=== PATIENT | male | born 1990 | race Caucasian/White ===

== ENCOUNTER 2020-11-14 09:53 | Outpatient (CLI) | payer OTHER ==
[2020-11-14 14:21] LABS: BASOPHILS % (AUTO) 0.5 %; EOSINOPHILS # (AUTO) 0.1 10^3/uL (0.0-0.7); EOSINOPHILS % (AUTO) 1.2 %; HGB - HEMOGLOBIN 15.1 g/dL (14.0-18.0); LYMPHOCYTES # (AUTO) 1.9 10^3/uL (1.5-3.5); LYMPHOCYTES % (AUTO) 24.7 %; MEAN CORPUSCULAR HEMOGLOBIN 29.2 pg (27.0-31.0); MEAN CORPUSCULAR HGB CONC 33.6 g/dL (32.0-36.0); MEAN CORPUSCULAR VOLUME 86.9 fL (80.0-94.0); MEAN PLATELET VOLUME 9.7 fL (7.4-11.4); MONOCYTES # (AUTO) 0.4 10^3/uL (0.0-1.0); MONOCYTES % (AUTO) 5.5 %; NEUTROPHILS # (AUTO) 5.3 10^3/uL (1.5-6.6); NEUTROPHILS % (AUTO) 67.2 %; PLT - PLATELET COUNT 214 10^3/uL (130-450); RED BLOOD COUNT 5.18 10^6/uL (4.70-6.10); RED CELL DISTRIBUTION WIDTH 13.3 % (12.0-15.0); WHITE BLOOD COUNT 7.8 x10^3/uL (4.8-10.8)
[2020-11-14 14:48] LABS: ALBUMIN 4.4 g/dL (3.2-5.5); ALKALINE PHOSPHATASE 64 IU/L (42-121); ALT ALANINE AMINOTRANSFERASE 28 IU/L (10-60); AST ASPARTATE AMINOTRANSFERASE 26 IU/L (10-42); BILIRUBIN,TOTAL 0.6 mg/dL (0.2-1.0); BUN - BLOOD UREA NITROGEN 15 mg/dL (6-20); CALCIUM 9.5 mg/dL (8.5-10.3); CARBON DIOXIDE - CO2 28 mmol/L (21-32); CHLORIDE 107 mmol/L (101-111); CHOL/HDL RATIO 7.3 (<5.0); CHOLESTEROL 174 mg/dL; CREATININE 0.9 mg/dL (0.6-1.2); GFR - MDRD 98 (>89); GLUCOSE 97 mg/dL (70-100); HDL CHOLESTEROL 24 mg/dL; LDL CHOLESTEROL,CALCULATED 129 mg/dL; LDL CHOLESTEROL,DIRECT 124 mg/dL; LDL/HDL RATIO 5.4 (<3.6); POTASSIUM 3.6 mmol/L (3.5-5.0); SODIUM 143 mmol/L (135-145); TRIGLYCERIDES 106 mg/dL; VLDL CHOLESTEROL 21 mg/dL
[2020-11-14 15:15] LABS: BILIRUBIN,DIRECT < 0.1 mg/dL (0.1-0.5)
[2020-11-15 11:12] LABS: HEPATITIS B SURFACE ANTIGEN NON-REACTIVE (NON-REACTIVE); HEPATITIS C ANTIBODY NON-REACTIVE (NON-REACTIVE)
[2020-11-15 11:27] LABS: HEPATITIS B CORE AB TOTAL NON-REACTIVE (NON-REACTIVE)
[2020-11-16 14:01] LABS: NIL 0.01 IU/mL
== END 2020-11-14 09:54 | disposition home or self-care (01) ==
LOC: LAB.S 09:53
PROVIDERS: ATTEND Physician Assistant
DX: L40.0 Psoriasis vulgaris (principal); L40.59 Other psoriatic arthropathy; L28.1 Prurigo nodularis
CPT/HCPCS: 36415; 80048; 80061; 80076; 83721; 85025; 86317; 86480; 86704; 86803; 87340

== ENCOUNTER 2021-07-17 13:15 | Outpatient (CLI) | payer MEDICAID ==
[2021-07-17 20:15] LABS: BASOPHILS # (AUTO) 0.1 10^3/uL (0.0-0.1); BASOPHILS % (AUTO) 0.8 %; EOSINOPHILS # (AUTO) 0.1 10^3/uL (0.0-0.7); EOSINOPHILS % (AUTO) 0.8 %; HCT - HEMATOCRIT 46.7 % (42.0-52.0); HGB - HEMOGLOBIN 15.5 g/dL (14.0-18.0); LYMPHOCYTES # (AUTO) 1.7 10^3/uL (1.5-3.5); LYMPHOCYTES % (AUTO) 20.3 %; MEAN CORPUSCULAR HGB CONC 33.2 g/dL (32.0-36.0); MEAN CORPUSCULAR VOLUME 84.4 fL (80.0-94.0); MONOCYTES # (AUTO) 0.5 10^3/uL (0.0-1.0); MONOCYTES % (AUTO) 6.1 %; NEUTROPHILS # (AUTO) 6.1 10^3/uL (1.5-6.6); NEUTROPHILS % (AUTO) 71.2 %; PLT - PLATELET COUNT 278 10^3/uL (130-450); RED BLOOD COUNT 5.53 10^6/uL (4.70-6.10); RED CELL DISTRIBUTION WIDTH 13.4 % (12.0-15.0); WHITE BLOOD COUNT 8.6 x10^3/uL (4.8-10.8)
[2021-07-17 20:21] LABS: ALBUMIN 4.6 g/dL (3.2-5.5); ALBUMIN/GLOBULIN RATIO 1.1 (1.0-2.2); BILIRUBIN,TOTAL 0.7 mg/dL (0.2-1.0); CALCIUM 9.5 mg/dL (8.5-10.3); CREATININE 0.9 mg/dL (0.6-1.2); POTASSIUM 3.2 mmol/L (3.5-5.0); TOTAL PROTEIN 8.7 g/dL (6.7-8.2)
[2021-07-19 09:36] LABS: HEPATITIS B SURFACE ANTIGEN NON-REACTIVE (NON-REACTIVE)
[2021-07-19 14:46] LABS: HIV AG/AB 4TH GEN NON-REACTIVE (NON-REACTIVE)
[2021-07-20 15:05] LABS: NIL 0.02 IU/mL
== END 2021-07-17 13:16 | disposition home or self-care (01) ==
LOC: LAB.S 13:15
DX: L40.8 Other psoriasis (principal)
CPT/HCPCS: 36415; 80053; 85025; 86480; 87340; 87389

== ENCOUNTER 2021-12-03 14:19 | Outpatient (CLI) | payer MEDICAID ==
[2021-12-03 19:56] LABS: BASOPHILS % (AUTO) 0.4 %; EOSINOPHILS # (AUTO) 0.1 10^3/uL (0.0-0.7); EOSINOPHILS % (AUTO) 0.9 %; HCT - HEMATOCRIT 44.7 % (42.0-52.0); HGB - HEMOGLOBIN 14.9 g/dL (14.0-18.0); LYMPHOCYTES # (AUTO) 1.9 10^3/uL (1.5-3.5); LYMPHOCYTES % (AUTO) 20.7 %; MEAN CORPUSCULAR HEMOGLOBIN 28.7 pg (27.0-31.0); MEAN CORPUSCULAR HGB CONC 33.3 g/dL (32.0-36.0); MEAN CORPUSCULAR VOLUME 86.1 fL (80.0-94.0); MEAN PLATELET VOLUME 9.7 fL (7.4-11.4); MONOCYTES # (AUTO) 0.6 10^3/uL (0.0-1.0); MONOCYTES % (AUTO) 6.1 %; NEUTROPHILS # (AUTO) 6.5 10^3/uL (1.5-6.6); NEUTROPHILS % (AUTO) 71.1 %; PLT - PLATELET COUNT 255 10^3/uL (130-450); RED BLOOD COUNT 5.19 10^6/uL (4.70-6.10); RED CELL DISTRIBUTION WIDTH 13.7 % (12.0-15.0); WHITE BLOOD COUNT 9.2 x10^3/uL (4.8-10.8)
[2021-12-03 20:13] LABS: ALBUMIN 4.6 g/dL (3.2-5.5); ALBUMIN/GLOBULIN RATIO 1.2 (1.0-2.2); ALKALINE PHOSPHATASE 58 IU/L (42-121); ALT ALANINE AMINOTRANSFERASE 28 IU/L (10-60); AST ASPARTATE AMINOTRANSFERASE 31 IU/L (10-42); BILIRUBIN,TOTAL 0.8 mg/dL (0.2-1.0); BUN - BLOOD UREA NITROGEN 14 mg/dL (6-20); CALCIUM 9.6 mg/dL (8.5-10.3); CARBON DIOXIDE - CO2 27 mmol/L (21-32); CHLORIDE 105 mmol/L (101-111); CHOL/HDL RATIO 6.7 (<5.0); CHOLESTEROL 161 mg/dL; CREATININE 1.1 mg/dL (0.6-1.2); GFR - MDRD 77 (>89); GLUCOSE 97 mg/dL (70-100); HDL CHOLESTEROL 24 mg/dL; LDL CHOLESTEROL,CALCULATED 118 mg/dL; LDL/HDL RATIO 4.9 (<3.6); POTASSIUM 3.9 mmol/L (3.5-5.0); SODIUM 142 mmol/L (135-145); TOTAL PROTEIN 8.3 g/dL (6.7-8.2); TRIGLYCERIDES 96 mg/dL; VLDL CHOLESTEROL 19 mg/dL
[2021-12-03 20:26] LABS: THYROID STIMULATING HORMONE 1.55 uIU/mL (0.34-5.60)
== END 2021-12-03 14:20 | disposition home or self-care (01) ==
LOC: LAB.S 14:19
PROVIDERS: ATTEND Registered Nurse
DX: I10 Essential (primary) hypertension (principal); Z13.220 Encounter for screening for lipoid disorders; N40.0 Benign prostatic hyperplasia without lower urinary tract symptoms; Z13.29 Encounter for screening for other suspected endocrine disorder; Z79.899 Other long term (current) drug therapy
CPT/HCPCS: 36415; 80053; 80061; 83721; 84153; 84443; 85025

== ENCOUNTER 2022-07-12 12:23 | Outpatient (CLI) | payer MEDICAID ==
[2022-07-12 14:22] LABS: HCT - HEMATOCRIT 44.8 % (42.0-52.0); HGB - HEMOGLOBIN 14.9 g/dL (14.0-18.0); MEAN CORPUSCULAR HGB CONC 33.3 g/dL (32.0-36.0); MEAN CORPUSCULAR VOLUME 87.2 fL (80.0-94.0); MEAN PLATELET VOLUME 10.2 fL (7.4-11.4); RED BLOOD COUNT 5.14 10^6/uL (4.70-6.10); RED CELL DISTRIBUTION WIDTH 13.6 % (12.0-15.0); WHITE BLOOD COUNT 9.3 x10^3/uL (4.8-10.8)
[2022-07-12 14:40] LABS: ALBUMIN 4.5 g/dL (3.2-5.5); ALBUMIN/GLOBULIN RATIO 1.2 (1.0-2.2); BILIRUBIN,TOTAL 0.7 mg/dL (0.2-1.0); CALCIUM 9.7 mg/dL (8.5-10.3); CREATININE 0.9 mg/dL (0.6-1.2); POTASSIUM 3.5 mmol/L (3.5-5.0); TOTAL PROTEIN 8.2 g/dL (6.7-8.2)
[2022-07-13 05:09] LABS: HBsAG SCREEN Negative (Negative)
[2022-07-17 10:08] LABS: HBV IU/ML HBV DNA not detected IU/mL (.)
== END 2022-07-12 12:24 | disposition home or self-care (01) ==
LOC: LAB.S 12:23
PROVIDERS: ATTEND Dermatology
DX: L40.9 Psoriasis, unspecified (principal); Z79.899 Other long term (current) drug therapy
CPT/HCPCS: 36415; 80053; 81599; 85027; 86480; 87340; 87517

== ENCOUNTER 2022-11-29 12:31 | Emergency (ER) | payer MEDICAID ==
[2022-11-29] MEDS ORDERED: METOPROLOL SUCCINATE 50 MG TABLET PO STA (15:36)
--- NOTE | 2022-11-29 15:38 | ED Physician Documentation ---
PD HPI CHEST PAIN - Stated complaint Stated Complaint: HIGH BLOOD PRESSURE - Chief complaint Chief Complaint: Cardiac - History obtained from History obtained from: Patient - Additional information Additional information: 32-year-old gentleman with history of hypertension was seen by my partner last week for new onset atrial flutter which she was cardioverted out of. Since then his blood pressure medicines have been increased, his losartan is now at 100 mg a day and his amlodipine at 5 mg a day. Today he noticed significantly elevated blood pressures and slightly high heart rates not associated with chest pain or trouble breathing. PD PAST MEDICAL HISTORY - Present Medications Home Medications: Ambulatory Orders Medication Instructions Recorded Confirmed Adalimumab [Humira(Cf) Pen] 40 mg SQ .TWICE A MONTH 11/23/22 11/23/22 LORazepam [Ativan] 1 mg PO TID PRN #12 tablet 11/23/22 Losartan [Cozaar] 50 mg PO DAILY 11/23/22 11/23/22 amLODIPine [Norvasc] 2.5 mg PO DAILY 11/23/22 11/23/22 Metoprolol Succinate [Toprol Xl] 50 mg PO DAILY #30 tablet 11/29/22 - Allergies Allergies/Adverse Reactions: Allergies Allergy/AdvReac Type Severity Reaction Status Date / Time No Known Drug Allergies Allergy Verified 11/29/22 13:12 PD ED PE NORMAL - Vitals Vital signs reviewed: Yes - General General: Alert and oriented X 3, No acute distress - Cardiac Cardiac: Other (Mild resting tachycardia, sinus tach on the monitor about 110) - Respiratory Respiratory: No respiratory distress, Clear bilaterally - Abdomen Abdomen: Normal bowel sounds, Soft, Non tender - Neuro Neuro: Alert and oriented X 3, Normal speech Results - Vitals Vitals: Vital Signs - 24 hr 11/29/22 13:07 Temperature 36.3 C L Heart Rate 108 H Respiratory 18 Rate Blood Pressure 171/100 H O2 Saturation 100 Oxygen O2 Source Room air PD Medical Decision Making - ED course ED course: 32-year-old gentleman with uncontrolled blood pressure, he appears well and has no chest pain. He is in sinus rhythm albeit mildly tachycardic. We will add beta-mandi pending follow-up. Departure - Departure Disposition: 01 Home, Self Care Clinical Impression: Hypertension Qualifiers: Hypertension type: primary hypertension Qualified Code(s): I10 - Essential (primary) hypertension Condition: Good Record reviewed to determine appropriate education?: Yes Instructions: DASH Plan Eat Heart Healthy Food Prescriptions: Metoprolol Succinate [Toprol Xl] 50 mg PO DAILY #30 tablet Comments: You should continue your current dosing of losartan and amlodipine. I am adding metoprolol which is a beta-mandi. In addition you should try to eat a low- salt heart healthy diet and exercise. Follow-up with your doctor next week for recheck and potential medication titration. Return for new or worsening symptoms.
[2022-11-29 15:43] VITALS: BP 164/108
== END 2022-11-29 15:49 | disposition home or self-care (01) ==
LOC: ED 12:31
DX: I10 Essential (primary) hypertension (principal); R00.0 Tachycardia, unspecified
CPT/HCPCS: 93005; 99283; A9270

== ENCOUNTER 2023-02-12 15:07 | Outpatient (CLI) | payer MEDICAID | END 2023-02-12 15:08 | disposition home or self-care (01) | LOC: MAC.MOP 15:07 | PROVIDERS: ATTEND Internal Medicine | DX: I48.0 Paroxysmal atrial fibrillation (principal) | CPT/HCPCS: 93242 ==

== ENCOUNTER 2023-03-26 09:17 | Outpatient (CLI) | payer MEDICAID | END 2023-03-26 09:18 | disposition home or self-care (01) | LOC: DI 09:17 | PROVIDERS: ATTEND Internal Medicine | DX: F41.9 Anxiety disorder, unspecified (principal); I10 Essential (primary) hypertension; I48.0 Paroxysmal atrial fibrillation | CPT/HCPCS: 93306 ==

== ENCOUNTER 2023-05-27 11:06 | Outpatient (CLI) | payer MEDICAID ==
--- NOTE | 2023-05-27 11:48 | Sleep Patient Instructions ---
Sleep Center Visit Summary - Patient Visit Information Reason for Visit: Initial consult for evaluation of sleep disordered breathing and other sleep issues. - Patient Instructions Instructions Attached: Sleep Study, Sleep Study Home Monitor Additional Instructions: You will be completing a sleep study, either an in-lab polysomnography (PSG) or home sleep study (HST). You will follow-up in the sleep care office after the sleep study is completed to hear the results and talk about therapy, if needed. You will be called by our office staff to schedule this appointment, but you may contact us with any questions. - Clinic Information Contact: [facility] [address] [place] [id number] [email or web address] T: [phone]
--- NOTE | 2023-05-27 11:51 | SLEEP CARE CONSULTATION ---
Information from patient questionnaire entered by Anéglica Girard. I have reviewed and concur with the information entered by Angélica Girard. This document represents the service I personally performed and the decisions made by me, Lillie Swift ARNP. History of Present Illness Service Date and Time: 05/27/2023 1106 Reason for Visit: New patient Chief Complaint: reports: Observed pauses in breathing, Frequent awakenings at night Date of Onset: ~ 4 years Usual bedtime: Between 12:30 - 1:30 AM Time it takes to fall asleep: 5 minutes of less Snores at night: Yes Observed to quit breathing while asleep: Yes Sleeps alone due to snoring: No Number of times waking at night: 3-5 Reasons for waking at night: reports: Bathroom, Other (Unknown reason). denies: Choking, Gasping for air Toss, Turn, or Twitch while sleeping: Yes Recalls having dreams: Yes Usually gets out of bed at: 8:00 AM - 9:30 AM Feels refreshed in the morning: Yes (Sometimes) Morning headache: Yes (Sometimes; 1 day every week or so; on Humira injection for Psoriasis) Sleepy or fatigued during the day: No Ever fallen asleep while driving: Yes (drowsy driving; no accidents) Takes day naps: Yes (Sometimes; only on weekends) Dreams during day naps: Yes Prior sleep studies: No Additional HPI information: I had the pleasure of seeing KANIKA RODRIGUEZ today regarding the possibility of him having a sleep disorder. His current complaints are observed pauses in breathing and frequent night awakenings. He was discussing sleep with his PCP and was recommended he have a sleep study. His is telling him he holds his breath for a long time at night and loud snoring. Occasionally, does have a dream that he is holding breath underwater. He denies waking up feeling like he is choking or gasping for air. He states that he does not always wake up feeling refreshed in the morning. 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 Patient is and lives in [place]. Have you smoked in the past 12 months: No Alcohol use: No Caffeine use: Yes Caffeine amount and frequency: Daily - one coffee drink per day Family History Family history of sleep disordered breathing: Yes Family Hx Sleep Apnea: Father: Snoring, Grandparent: Snoring Allergies and Home Medications Known drug allergies: No Drug allergies reviewed: Yes Home medication list reviewed: Yes Allergy and home medication list: Allergies No Known Drug Allergies Allergy (Verified 05/26/23 09:18) Medications: Humira 40 mg every two weeks Metroprolol daily Amlodipine besylate 45 mg daily Olmesartan daily Review of Systems Weight gain over past 5 years: 35-40 Cardiovascular: reports: high blood pressure Gastrointestinal: reports: heartburn Psychiatric: reports: anxiety Ear/Nose/Throat: reports: wisdom teeth removed (2 of 4). denies: tonsillectomy Musculoskeletal: reports: joint pain (/stiffness), joint swelling Physical Exam Vital signs obtained and entered by: Lillie Padgett NP Blood Pressure: 153/95 (pt anxious) Cuff size: wrist (right) Heart Rate: 95 O2 Saturation: 99 Height: 5 ft 11 in Weight: 245 lb 6.4 oz Body Mass Index: 34.2 BMI Classification: Obese Neck circumference: 17 (inches) Mouth and throat: narrow oropharynx Soft palate: long Hard palate: normal Uvula: normal, long Uvula visualization: 25% Mallampati Class III Tongue: enlarged in size with teeth harden on lateral edges Tonsils: 2+ Neck: normal w/o lymphadenopathy or thyromegaly Heart: regular rate and rhythm Lungs: clear bilaterally Impression and Plan 1. Suspected Obstructive Sleep Apnea-Hypopnea Syndrome, as suggested by a history of loud and irregular snoring, observed cessation of breath while asleep, gasping or choking in sleep, frequent awakening during the night and unrefreshed sleep. Narrow oropharynx and obesity are common predisposing factors for obstructive sleep apnea-hypopnea syndrome. I recommend proceeding to polysomnography to confirm the diagnosis and to assess severity. If the patient has significant sleep disordered breathing, a manual CPAP titration study will also be performed to find the optimal treatment pressure. I informed the patient of what the sleep studies involve and after some discussion, obtained agreement to proceed. The pathophysiology of obstructive sleep apnea-hypopnea syndrome was discussed with the patient and health risks of cardiovascular and cerebrovascular disease if not treated. Risks of drowsy driving discussed in detail and patient advised to avoid long distance driving and to veneer puller at the first sign of drowsiness. Patient agreed to plan. * Schedule polysomnography. * Avoid long distance driving or driving when feeling sleepy. * Avoid alcohol, sedative and muscle relaxant around bedtime. * Attempt to lose weight. * Review instructions provided by trained office staff on how to prepare for the sleep study. * Return for follow-up after sleep study completed. Counseling Topics: Weight loss health impact Visit Type: In Office Time Spent with Patient (minutes): 31 Provider Statement: I spent 100% of the Face to Face Visit with the patient with greater than 50% spent counseling the patient and coordination of care.
[2023-05-27 11:55] VITALS: BP 153/95; O2SAT 99
== END 2023-05-27 11:07 | disposition home or self-care (01) ==
LOC: SC 11:06
PROVIDERS: ATTEND Nurse Practitioner Family
DX: G47.8 Other sleep disorders (principal); R06.83 Snoring; R06.81 Apnea, not elsewhere classified; I10 Essential (primary) hypertension; E66.9 Obesity, unspecified; Z68.34 Body mass index [BMI] 34.0-34.9, adult
CPT/HCPCS: 99203; 99212

== ENCOUNTER → 2023-06-12 | Outpatient (CLI) | payer MEDICAID | LOC: SC 12:30 | PROVIDERS: ATTEND Nurse Practitioner Family | DX: Z53.9 Procedure and treatment not carried out, unspecified reason (principal) ==

== ENCOUNTER 2023-06-19 16:10 | Outpatient (CLI) | payer MEDICAID ==
--- NOTE | 2023-06-19 16:39 | Sleep Patient Instructions ---
Sleep Center Visit Summary - Patient Visit Information Reason for Visit: Sleep study follow up - Patient Instructions Instructions Attached: CPAP Additional Instructions: You are being started on CPAP therapy with pressure setting at 4-15 cmH2O. You w ill need to call the sleep care office to set up your follow up once you have your APAP machine and we will schedule a visit to check compliance and response to therapy at that time. You may call the office with any concerns about pressure feeling too low or too much for adjustment, if needed. You should contact DME supplier for any questions or concerns about mask or equipment. Please call office to schedule a follow up appointment in the sleep care office one month after obtaining new device. - Clinic Information Contact: [facility] [address] [place] [address] [email or web address] T: [phone]
--- NOTE | 2023-06-19 16:41 | SLEEP CARE CONSULTATION ---
Information from patient questionnaire entered by Sylvia Guerrero. I have reviewed and concur with the information entered by Sylvia Guerrero. This document represents the service I personally performed and the decisions made by , Lillie Swift ARNP. History of Present Illness Service Date and Time: 06/19/2023 1610 Initial [place] Sleepiness Scale score: 10 (in 2022) Current [place] Sleepiness Scale score: 8 (06/19/23) Additional HPI information: KANIKA RODRIGUEZ returns for follow up and results of the recently performed home sleep study. The sleep study showed moderate obstructive sleep apnea with an average AHI of 28.5 and tristen oxygen saturation of 81%. I explained the pathophysiology behind obstructive sleep apnea. We then spent quite a bit of time discussing different treatment options. For mild obstructive sleep apnea, surgery and oral appliance are alternatives to nasal CPAP therapy but in moderate or severe cases, nasal CPAP is the most effective and reliable treatment. I reviewed the impact of weight changes on sleep apnea and strongly recommended losing weight. After some discussion, the patient opted to go with the nasal CPAP therapy. Nasal autoCPAP set at 4-15 cmH20 will be ordered with rationale explained. A manual titration study will be ordered if unable to find optimal pressure with office adjustments. I explained how CPAP machine works and what to expect when using the machine. Using CPAP every night in order to get used to it was emphasized. Patient advised to put CPAP mask on before getting into bed so as not to fall asleep without CPAP. To assist acclimation to CPAP use, it could also be used for a short time during day while reading or watching TV. The patient was instructed to call the CPAP supplier to discuss any mechanical problem that may occur. If the mask given is uncomfortable or is difficult to keep on through the night even with adjustment, contact the CPAP supplier as many will replace with another mask style if notified before 30 days. If snoring or perceives is not getting enough air or too much air from the machine, notify this office. Patient does not drink alcohol. Patient was cautioned about risks of drowsy driving until sleepiness symptoms resolve. Patient denies drowsy driving. Sleep Study - Results Type of Sleep Study: Home sleep study (COMPLETED 06/13/23) Prior sleep studies: No Polysomnography/Home Sleep Study results: Physician Impression: The quality of the study is good. The length of the study is adequate (> 240 minutes). Please also see the tabulated and graphic data. 1. Obstructive Sleep Apnea-Hypopnea (ICD-10 G47.33), moderate, with an AHI of 28.5/hr and tristen SaO2 of 81%. During the study, the patient had 100 apneas (100 obstructive, 0 central, 0 mixed) and 90 hypopneas. The longest episode lasted 60.5 seconds. The respiratory events occurred most frequently during supine sleep (supine AHI was 58.0 and non-supine, 22.61). 2. Hypoxemia (ICD-10 R09.02), mild, with the lowest oxygen saturation of 81 % and 10.4 minutes with SaO2 under 90%. Baseline oxygen saturation was normal (Average oxygen saturation was 95%). Allergies and Home Medications Known drug allergies: No Drug allergies reviewed: Yes Home medication list reviewed: Yes (no changes) Allergy and home medication list: Allergies No Known Drug Allergies Allergy Review of Systems Review of systems same as previous: Yes (NO CHANGE) Physical Exam Vital signs obtained and entered by: SYLVIA Mosquera MA Blood Pressure: 138/86 (LEFT ARM) Cuff size: regular Heart Rate: 91 O2 Saturation: 98 Height: 5 ft 11 in Weight: 248 lb 9.6 oz Body Mass Index: 34.7 BMI Classification: Obese Impression and Plan 1. Obstructive Sleep Apnea-Hypopnea Syndrome, moderate, with lowest oxygen saturation of 81%. Obviously this is the cause of the patients symptoms of unrefreshed sleep, and excessive daytime sleepiness. Positive pressure therapy could benefit hypertension. As mentioned above, the patient will be started on nasal autoCPAP therapy with pressure set at 4-15 cmH2O. A manual titration study will be completed if unable to find optimal treatment pressure with office adjustments. Compliance guidelines also reviewed. A copy of compliance guidelines will be given for reference at check out. 2. Hypoxemia, mild, with a tristen oxygen saturation of 81% and 10.4 minutes spent under 90%. The baseline oxygen saturation was normal with an average oxygen saturation of 95%. 2. Obesity, unspecified. Currently patients BMI is 34.7. Obesity increases the risk of apnea, CPAP pressure requirements and overall health risks especially cardiovascular and diabetes. Thus patient is advised to lose weight. * Nasal auto CPAP therapy, pressure at 4-15 cm H2O. * Attempt to lose weight. * Avoid alcohol consumption near bedtime. * Avoid supine sleep until using CPAP. * The patient is again cautioned about driving until sleepiness completely resolves. * Return one month after CPAP obtained. I will assess response to therapy and compliance at that time. Counseling Topics: Weight loss health impact Prescriptions: Auto CPAP Visit Type: In Office Time Spent with Patient (minutes): 21 Provider Statement: I spent 100% of the Face to Face Visit with the patient with greater than 50% spent counseling the patient and coordination of care.
[2023-06-19 17:04] VITALS: BP 138/86; O2SAT 98
== END 2023-06-19 16:11 | disposition home or self-care (01) ==
LOC: SC 16:10
PROVIDERS: ATTEND Nurse Practitioner Family
DX: G47.33 Obstructive sleep apnea (adult) (pediatric) (principal); R09.02 Hypoxemia; E66.9 Obesity, unspecified; Z68.34 Body mass index [BMI] 34.0-34.9, adult
CPT/HCPCS: 99212; 99213

== ENCOUNTER 2023-11-25 10:23 | Outpatient (CLI) | payer MEDICAID ==
[2023-11-25 14:45] LABS: BASOPHILS % (AUTO) 0.4 %; EOSINOPHILS # (AUTO) 0.1 10^3/uL (0.0-0.7); EOSINOPHILS % (AUTO) 0.7 %; HCT - HEMATOCRIT 44.7 % (42.0-52.0); HGB - HEMOGLOBIN 15.1 g/dL (14.0-18.0); LYMPHOCYTES % (AUTO) 24.1 %; MEAN CORPUSCULAR HEMOGLOBIN 28.4 pg (27.0-31.0); MEAN CORPUSCULAR HGB CONC 33.8 g/dL (32.0-36.0); MEAN CORPUSCULAR VOLUME 84.2 fL (80.0-94.0); MEAN PLATELET VOLUME 10.3 fL (7.4-11.4); MONOCYTES # (AUTO) 0.6 10^3/uL (0.0-1.0); MONOCYTES % (AUTO) 7.2 %; NEUTROPHILS # (AUTO) 5.6 10^3/uL (1.5-6.6); NEUTROPHILS % (AUTO) 66.2 %; PLT - PLATELET COUNT 259 10^3/uL (130-450); RED BLOOD COUNT 5.31 10^6/uL (4.70-6.10); RED CELL DISTRIBUTION WIDTH 13.4 % (12.0-15.0); WHITE BLOOD COUNT 8.4 x10^3/uL (4.8-10.8)
[2023-11-25 15:44] LABS: ALBUMIN 4.6 g/dL (3.2-5.5); ALBUMIN/GLOBULIN RATIO 1.2 (1.0-2.2); BILIRUBIN,TOTAL 0.6 mg/dL (0.2-1.0); CREATININE 0.8 mg/dL (0.6-1.3); POTASSIUM 3.7 mmol/L (3.5-4.5); TOTAL PROTEIN 8.5 g/dL (6.4-8.9)
== END 2023-11-25 10:24 | disposition home or self-care (01) ==
LOC: LAB.S 10:23
DX: Z51.81 Encounter for therapeutic drug level monitoring (principal); Z79.899 Other long term (current) drug therapy
CPT/HCPCS: 36415; 80053; 81599; 85025; 86317